=== PATIENT | male | born 1935 | race African-American/Black ===

== ENCOUNTER → 2017-06-06 | Outpatient (CLI) | payer MEDICARE ==
[2015-09-30 11:00] VITALS: BP 144/66
[~2017-06-06] MED LIST: ACET325T9 PO; AMOX1TAB61 PO; BUDE10.2 IH; DIGO125T PO; Diltiazem Hcl PO; PROAIR HFA8.5 GM IH
--- NOTE | 2017-06-06 12:45 | RAD ---
CT of the chest without contrast, 06/06/2017: History: Cough Noncontrast scans were obtained as requested. Comparison is made to a study from 03/29/2016. There are a few scattered linear parenchymal scars in the lungs. No pulmonary infiltrate or mass is identified. There is no evidence of pleural fluid. There is moderate calcific plaquing of the thoracic aorta and its branches including the coronary arteries. There is no evidence of thoracic aortic aneurysm. No mediastinal adenopathy is seen. There are mild scattered degenerative changes in the spine. There is a slight reverse spondylolisthesis at L1-2 due to facet joint arthropathy. IMPRESSION: 1. Calcific plaquing of the aorta and coronary arteries. 2. No acute chest abnormality is detected. PQRS Compliance Statement: One or more of the following individualized dose reduction techniques were utilized for this examination: 1. Automated exposure control 2. Adjustment of the mA and/or kV according to patient size 3. Use of iterative reconstruction technique
== END | disposition home or self-care (01) ==
LOC: CT 13:02
PROVIDERS: ATTEND Internal Medicine Pulmonary Disease
DX: R05 Cough (principal); I70.0 Atherosclerosis of aorta
CPT/HCPCS: 71250

== ENCOUNTER → 2017-06-13 | Outpatient (CLI) | payer MEDICARE ==
[2015-09-30 11:00] VITALS: BP 144/66
--- NOTE | 2017-06-18 17:55 | RAD ---
APPROVED REPORT Patient Location : OUT-PATIENT Deep System Deep Venous Thrombosis present : No Deep Venous Reflux present : No Findings The bilateral greater and lesser saphenous veins were imaged and do not reveal any evidence of reflux . The right GSV measures 6.4mm and the LSV measures 1mm. The left GSV measures 6.8 mm and the LSV measures 5 mm. Incidental note is made of a left popliteal fossa mass most consistent with a smith's cyst. There ar e two well circumscribed cysts measuring 1.8 cm and 0.4 cm. Differential includes ruptured cyst with thrombus or mass. Recommend clinical correlation and consider further evaluation to rule out mass wit h MRI. Critical Notification Critical Value: No <Conclusion> 1. No evidence of reflux in the bilateral lower extremities. 2. Incidental finding of a left popliteal fossa mass, suggestive of smith's cyst but recommend clinic al correlation and consideration of MRI to rule out mass.
== END | disposition home or self-care (01) ==
LOC: US 12:28
PROVIDERS: ATTEND Internal Medicine Cardiovascular Disease
DX: R60.0 Localized edema (principal)
CPT/HCPCS: 93970

== ENCOUNTER → 2017-06-16 | Outpatient (CLI) | payer MEDICARE ==
[2015-09-30 11:00] VITALS: BP 144/66
[~2017-06-16] MED LIST changes: +REGADENOSON 0.4 MG/5 ML DISP.SYRIN. IV ONE
--- NOTE | 2017-06-16 10:09 | CARD ---
APPROVED REPORT EXAM: Two-dimensional and M-mode echocardiogram with Doppler and color Doppler. Other Information Quality : Average Rhythm : NSR INDICATION Dyspnea 2D DIMENSIONS RVDd3.4 (2.9-3.5cm)Left Atrium(2D)3.3 (1.6-4.0cm) IVSd0.9 (0.7-1.1cm)Aortic Root(2D)2.7 (2.0-3.7cm) LVDd2.5 (3.9-5.9cm)LVOT Diameter2.1 (1.8-2.4cm) PWd1.0 (0.7-1.1cm)LVDs1.8 (2.5-4.0cm) FS (%) 29.8 %SV13.6 ml LVEF(%)59.1 (>50%) Aortic Valve AoV Peak Iron.173.8cm/sAoV VTI34.8cm AO Peak GR.12.1mmHgLVOT Peak Iron.85.8cm/s LVOT VTI 19.09cmAO Mean GR.7mmHg ALAINA (VTI)1.84jb5VN P 1/2 Fxoi142pk Mitral Valve MV E Ckdkiipb15.6cm/sMV DECEL [id number] MV A Emstdwwr00.4cm/sMV GMP19bv E/A Ratio0.9MV A Qdvrvuox709mz MVA (PHT)3.19cm2 TDI E/Lateral E'13.0E/Medial E'13.3 Pulmonary Valve RVOT VTI21.6cm Tricuspid Valve TR P. Ubukqmrd679em/sRAP AMNIDYEW7zfEh TR Peak Gr.72ybWhXUCU27dlUg LEFT VENTRICLE The left ventricle is normal size. There is normal left ventricular wall thickness. Left ventricle sy stolic function is normal. The Ejection Fraction is 55-60%. There is normal LV segmental wall motion. The left ventricular diastolic function and filling is normal for age. There is no ventricular septa l defect visualized. RIGHT VENTRICLE The right ventricle is normal size. The right ventricular systolic function is normal. ATRIA The left atrium size is normal. The right atrium size is normal. The interatrial septum is intact wit h no evidence for an atrial septal defect or patent foramen ovale as noted on 2-D or Doppler imaging. AORTIC VALVE The aortic valve is moderately sclerotic. Doppler and Color Flow revealed mild to moderate aortic reg urgitation. There is no significant aortic valvular stenosis. MITRAL VALVE Mitral annular calcification is mild. The mitral valve leaflets are thickened. There is no mitral magdalene ve stenosis. Doppler and Color Flow revealed no mitral valve regurgitation noted. TRICUSPID VALVE The tricuspid valve is normal in structure and function. Doppler and Color Flow revealed mild tricusp id regurgitation. The PA pressure was estimated at 38 mmHg. There is no tricuspid valve stenosis. PULMONIC VALVE The pulmonic valve is not well visualized. Doppler and Color Flow revealed no pulmonic valvular regur gitation. There is no pulmonic valvular stenosis. GREAT VESSELS The aortic root is normal in size. Pulmonary veins not well visualized. The IVC is normal in size and collapses >50% with inspiration. PERICARDIAL EFFUSION There is no evidence of significant pericardial effusion. Critical Notification Critical Value: No <Conclusion> Left ventricle systolic function is normal. The Ejection Fraction is 55-60%. There is normal LV segmental wall motion. Mild to moderate aortic regurgitation. Mild tricuspid regurgitation. The PA pressure was estimated at 38 mmHg. There is no evidence of significant pericardial effusion.
--- NOTE | 2017-06-16 14:20 | RAD ---
APPROVED REPORT Test Type: Pharmacological Stress Nurse/Tech: Samantha Spencer R.N. Test Indications: dyspnea on exertion Cardiac History: Family history, Hypertension, smoker, COPD Medications: See Electronic Medical Record Medical History: See Electronic Medical Record Resting ECG: NSR Resting Heart Rate: 59 bpm Resting Blood Pressure: 157/62mmHg Pretest Chest Pain: No chest pain Nurse/Tech Notes S1S2, lungs sound coarse maura. Unable to get a pulse ox due to pt,s cold extremities Consent: The procedure was explained to the patient in lay terms. Informed consent was witnessed. Renny eout was entered into Ning. History and Stress Test performed by Samantha Spencer R.N. Pharm. Details Pharmacologic stress testing was performed using 0.4mg per 5ml of regadenoson given intravenously ove r 7-10 seconds. Stress Symptoms No chest pain or symptoms. POST EXERCISE Reason for Termination: Infusion complete Max HR: 85 bpm Max Blood Pressure: 142/69mmHg Blood Pressure response to exercise: Normal blood pressure response during stress. Chest Pain: No. Arrhythmia: Yes. occ PVC ST Change: No. INTERPRETATION Stress EKG Conclusion: Baseline EKG showed sinus rhythm. No ischemic changes at peak stress. No arr hythmias. Imaging Protocol IMAGE PROTOCOL: Rest Tc-99m/stress Tc-99m 1 day Rest: Stress: Viability: Radiopharm.Tc99m LtgfvorqfWx32z Sestamibi Dose12.5mCi 33mCi Duration 15min. 10min. Img Date 06/16/2017 06/16/2017 Inj-Img Sxrt21rat. 60min. Rest Admin Site:IV - Right ForearmAdministrator:HANNY Wallace Stress Admin Site: IV - Right ForearmAdministrator: HANNY Wallace STRESS DATA End Diast. Vol.52.0mlAv. Heart Rate82.0bpm End Syst. Vol.2.0mlCO Index BSA0.0L/min Myocardial Mxcq717.0gEject. Jiarcbto03.0% Stress Rates Pk. Fill Rate1.65EDV/secLVtime Pk. Fill 127.59msec Pk. Empty Rate6.26ESV/secLVtime Pk. Zytqf931.61msec 1/ Pk. Fill1.34EDV/sec Stress Scores Regional WT0.00Summed WT3.00 Regional WM0.00Summed WM0.00 Study quality was good. Left Ventricular size was Normal at Rest and Stress. Lung uptake was Normal. Left Ventricular ejection fraction is >80%. The rest and stress images show normal perfusion, normal contraction and thickening. LV Perf. Quant 17 Seg. SSS1.00 17 Seg. SRS5.00 17 Seg. SDS0.00 Stress Defect Extent (% LAD)3.80Rest Defect Extent (% LAD)18.80Rev. Defect Extent (% LAD)0.00 Stress Defect Extent (% LCX) 0.00Rest Defect Extent (% LCX)0.00Rev. Defect Extent (% LCX)0.00 Stress Defect Extent (% RCA)0.00Rest Defect Extent (% RCA)0.00Rev. Defect Extent (% RCA)0.00 Stress Defect Extent (% AYDIN)1.30Rest Defect Extent (% AYDIN)8.00Rev. Defect Extent (% AYDIN)0.00 Conclusion 1. Regadenoson cardioisotope stress test did not show any evidence of ischemia or infarct. 2. Normal left ventricular systolic function with ejection fraction calculated at >80%. 3. Low risk for cardiac events.
== END | disposition home or self-care (01) ==
LOC: NM 07:29
PROVIDERS: ATTEND Internal Medicine Cardiovascular Disease
DX: I08.2 Rheumatic disorders of both aortic and tricuspid valves (principal)
CPT/HCPCS: 78452; 93017; 93306; 96374; 96375; 96376; A9500; J2785

== ENCOUNTER → 2017-06-30 | Outpatient (CLI) | payer MEDICARE ==
[2015-09-30 11:00] VITALS: BP 144/66
[~2017-06-30] MED LIST changes: -REGADENOSON 0.4 MG/5 ML DISP.SYRIN. IV ONE
--- NOTE | 2017-06-30 16:02 | RAD ---
APPROVED REPORT Patient Location: OUT-PATIENT Indications Rest Pain:Bilaterally cellutlitis lt toe VELOCITY AND DOPPLER WAVEFORM ANALYSIS RIGHT cm/secWaveformSeverity LEFT c m/secWaveformSeverity Ext Iliac Art. 95.0MonophasicExt Iliac Art. 83.0Monophasic pCFA 107.0MonophasicpCFA 77.0Monophasi c dCFA 139.0MonophasicdCFA 74.0Monophasi c Prof Fem Art. 84.0MonophasicProf Fem Art. 204.0Monophasi c Fem Art Prox. 114.0MonophasicFem Art Prox. 555.0Monophas ic Fem Art Mid. 353.0MonophasicFem Art Mid. 129.0Monophas ic Fem Art Dist. 153.0MonophasicFem Art Dist. 90.0Monophasi c Pop Art(AK) 155.0MonophasicPop Art(AK) 76.0Monophasi c Pop Art(BK) 84.0MonophasicPop Art(BK) 52.0Monophasic PATIENT ACCESS REGISTRAR Prox. 68.0MonophasicPTA Prox. 41.0Monophasic PATIENT ACCESS REGISTRAR Dist. 46.0MonophasicPTA Dist. 21.0Monophasic Per Art Mid. 58.0MonophasicPer Art Mid. 20.0Monophasic LUCIANO Prox. 60.0MonophasicATA Prox. 42.0Monophasic Findings Toussaint scale images of the bilateral lower extremity arterial vessels are notable for diffuse atheroscl erosis. On the right side there are monophasic waveforms from the common femoral artery to the dorsalis pedis likely suggestive of loss of arterial elasticity due to aging. There is elevated velocity in the rig ht mid SFA consistent with greater than 75% stenosis. Otherwise no high-grade flow-limiting stenosis is noted on the right side. On the left side there are again monophasic waveforms suggestive of loss of arterial elasticity. Ther e is elevated velocities at the ostial deep femoral artery suggesting greater than 75% stenosis. Ther e is also elevated velocities and turbulence on color Doppler at the ostial/proximal superficial femo ral artery suggestive of greater than 90% stenosis. Blunted and monophasic waveforms are noted throug hout the left lower extremity likely due to high-grade obstructive disease in the proximal segments. No flow-limiting inflow disease in the external iliac arteries is noted bilaterally. Critical Notification Critical Value: No <Conclusion> 1. High-grade bilateral superficial femoral artery disease as described above.
== END | disposition home or self-care (01) ==
LOC: US 13:55
PROVIDERS: ATTEND Internal Medicine Cardiovascular Disease
DX: M79.605 Pain in left leg (principal); M79.604 Pain in right leg; L03.032 Cellulitis of left toe; L03.031 Cellulitis of right toe
CPT/HCPCS: 93925

== ENCOUNTER 2017-07-15 06:56 | Outpatient (CLI) | payer MEDICARE ==
[~2017-07-15] VITALS: Ht 172.7 cm; Wt 53.5 kg
[2017-07-15] VITALS (8 sets, daily range): BP systolic 138–182; BP diastolic 53–79
[2017-07-15] MEDS ORDERED: DILT180C29 PO (07:18)
[2017-07-15] MEDS ORDERED: TRAM50TA PO (07:18)
[2017-07-15] MEDS ORDERED: ASPI-482 PO (07:18)
[2017-07-15] MEDS ORDERED: HYDR12.58 PO (07:18)
[2017-07-15] MEDS ORDERED: LIDOCAINE 2% 20 ML VIAL. ONE (07:27)
[2017-07-15] MEDS ORDERED: IODIXANOL 320 MG/ML 100 ML VIAL. ONE (07:28)
[2017-07-15 07:52] LABS: CALCIUM 8.9 mg/dL (8.5-10.1); CREATININE 0.8 mg/dL (0.7-1.3); GFR 112.3; POTASSIUM 4.3 mmol/L (3.5-5.1)
[2017-07-15 07:56] LABS: HEMATOCRIT 41.4 % (39.0-53.0); HEMOGLOBIN 13.9 g/dL (13.0-17.5); RED BLOOD COUNT 4.48 x10^6/uL (4.30-5.70); RED CELL DISTRIBUTION WIDTH 14.8 % (11.5-14.5); WHITE BLOOD COUNT 4.2 x10^3/uL (4.0-11.0)
[2017-07-15 08:06] LABS: INR 1.2 (0.8-1.1); PROTHROMBIN TIME PATIENT 14.6 SEC (11.7-14.0)
[2017-07-15] MEDS ORDERED: MIDAZOLAM HCL/PF 5 MG/5 ML VIAL. ONE (08:12)
[2017-07-15] MEDS ORDERED: fentaNYL PF VIAL 250 MCG/5 ML VIAL ONE (08:13)
[2017-07-15] MEDS ORDERED: MIDAZOLAM HCL/PF 5 MG/5 ML VIAL. IV ONE (09:15)
[2017-07-15] MEDS ORDERED: fentaNYL PF VIAL 250 MCG/5 ML VIAL IV ONE (09:15)
[2017-07-15] MEDS ORDERED: IODIXANOL 320 MG/ML 100 ML VIAL. IART ONE (09:15)
[2017-07-15] MEDS ORDERED: LIDOCAINE 2% 20 ML VIAL. IJ ONE (09:15)
[2017-07-15] MEDS ORDERED: IV 1/2 NORMAL SALINE 1,000 ML IV SCH (09:40)
--- NOTE | 2017-07-15 09:40 | PDOC ---
MODERATE SEDATION ASSESSMENT RISKS/ALTERNATIVES Risks/Alternatives Risks and alternatives of this type of sedation and procedure discussed with: RISK/ALTERNATIVES: Patient H & P ON CHART H & P H & P on chart and reviewed for co-morbid conditions and appropriate labs. H&P ON CHART: Yes STATUS PREG STATUS ASSESSED: N/A MEDS/ALLERGIES REVIEWED Meds/Allergies Reviewed Medications and Allergies including time and route of recently administered narcotics and sedatives. MEDS/ALLERGIES REVIEWED: Yes ASA RATING ASA RATING: II AIRWAY ASSESSMENT Airway Assessment Airway patency, oral function limitations, presence of caps, crowns, dentures, partials, and ability to extend neck assessed. AIRWAY ASSESSMENT: Yes MALLAMPATI SCORE MALLAMPATI SCORE: II PRE-SEDATION ASSESSMENT PRE-SEDATION ASSESSMENT: Yes JOSE J SARMIENTO MD Jul 15, 2017 09:40
--- NOTE | 2017-07-15 10:07 | CARD ---
APPROVED REPORT Patient StatusOUT-PATIENT Pecan Picker: Bhupinder Upton RT (R) Procedure(s) performed: Aortogram with bilateral lower extremity runoff Sedation time- 62 mins INDICATION FOR PROCEDURE The indication(s) include : Peripheral vascular disease with claudication. PROCEDURE NARRATIVE After explaining the risks, benefits and alternative options, informed consent was obtained from jocy ent. Patient was brought to the cardia Adjunct Psychology Faculty Member and his right groin was prepped and draped in the usu al fashion. 10 mL of 2% lidocaine was infiltrated into the skin and subcutaneous tissues for local an esthesia. Arterial access was obtained in the right common femoral artery and a 5 Ugandan sheath was i nserted. 5 Ugandan pigtail catheter was used to perform aortogram with bilateral lower extremity runof f. A 5 [place] crossover catheter was advanced over the aortic elaine with the help off a 0.035 inch G lidtarpipeire advantage wire and with the tip positioned in the proximal segment of the left superficial f emoral artery, selective angiography was performed. Contrast injections were performed through the sh eath in the right groin for selective right lower extremity angiography. Patient tolerated the proced ure well. Hemostasis in the right groin was achieved using Perclose suture closure device. There were no immediate complications. FINDINGS 1. No significant stenosis involving the distal descending aorta, bilateral common iliac arteries. 2. 40% stenosis involving the proximal segment of the left external iliac artery. No significant wendy nosis involving the right external iliac artery. The internal iliac arteries are completely occluded bilaterally. 3. No significant stenosis involving bilateral common femoral arteries. 4. The left superficial femoral artery showed 90-95% stenosis in the proximal segment, multiple area s of 70-80% stenosis in the midsegment and 90% stenosis in the distal segment. The right superficial femoral artery showed multiple areas of 70-80% stenoses in the mid and distal segments. 5. No significant stenosis involving the right popliteal artery. The left popliteal artery showed 10 0% chronic total occlusion with distal reconstitution from collaterals. 6. There is two-vessel runoff below the knee proximally involving the anterior tibial and peroneal a rteries. The anterior tibial artery however this completely occluded in the midsegment with distal re constitution from collaterals. The right posterior tibial artery is 100% occluded chronically. 7. There is one vessel runoff below the knee left lower extremity involving the peroneal artery. The left anterior and posterior tibial arteries showed chronic total occlusions proximally. Conclusion Severe bilateral lower extremity peripheral vascular disease as described above Recommendations Vascular surgery consultation for possible surgical revascularization. If he is deemed a poor surgical candidate, we will consider percutaneous revascularization.
== END 2017-07-15 11:40 | disposition home or self-care (01) ==
LOC: CCL 06:56
PROVIDERS: ATTEND Internal Medicine Cardiovascular Disease
DX: I70.213 Atherosclerosis of native arteries of extremities with intermittent claudication, bilateral legs (principal); J44.9 Chronic obstructive pulmonary disease, unspecified; K21.9 Gastro-esophageal reflux disease without esophagitis; M19.90 Unspecified osteoarthritis, unspecified site; F17.200 Nicotine dependence, unspecified, uncomplicated; Z90.49 Acquired absence of other specified parts of digestive tract; Z87.39 Personal history of other diseases of the musculoskeletal system and connective tissue; Z72.0 Tobacco use
CPT/HCPCS: 36415; 75630; 80048; 85027; 85610; 99152; 99153; C1769; C1771; C1892; J1644; J2250; J3010; Q9967; J2001

== ENCOUNTER → 2019-07-02 | Outpatient (CLI) | payer MEDICARE ==
[2017-07-15 11:00] VITALS: BP 167/71
[~2019-07-02] MED LIST changes: +ALBU2.5V8 IH; +ASPI-482 PO; +DILT180C29 PO; +HYDR12.58 PO; -PROAIR HFA8.5 GM IH; +TRAM50TA PO
--- NOTE | 2019-07-02 09:25 | RAD ---
Examination: CT chest without contrast HISTORY: History of pulmonary infiltrate COMPARISON: 05/29/2018 TECHNIQUE: Axial CT images of the chest were performed without contrast. Coronal and sagittal reformats are performed. Exposure: One or more of the following individualized dose reduction techniques were utilized for this examination: 1. Automated exposure control 2. Adjustment of the mA and/or kV according to patient size 3. Use of iterative reconstruction technique FINDINGS: The central airways are patent. The heart size grossly appears unremarkable. Diffuse coronary artery calcifications identified. No radiologically significant mediastinal lymphadenopathy is identified. Moderate lung emphysematous changes. No evidence of pleural effusion or pneumothorax. The previously visualized nodule measuring 7 mm identified in the right lower lobe of the lung adjacent to the bronchus is unchanged. Minimal atelectasis or infiltrate right lung base. The noncontrasted liver, spleen, adrenals grossly appears unremarkable. Moderate aortic atherosclerosis. Mild degenerative changes thoracic spine. IMPRESSION: 1. Minimal right lung base atelectasis or infiltrate. 2. 7 mm nodule identified in the right lower lobe of the lung similar to prior exam. Electronically signed by: Mike Rodriguez MD (07/02/2019 9:23 AM) [id number]
== END | disposition home or self-care (01) ==
LOC: CT 11:11
PROVIDERS: ATTEND Internal Medicine Pulmonary Disease
DX: J43.9 Emphysema, unspecified (principal); R91.1 Solitary pulmonary nodule; I25.10 Atherosclerotic heart disease of native coronary artery without angina pectoris; I70.0 Atherosclerosis of aorta; M47.814 Spondylosis without myelopathy or radiculopathy, thoracic region; R63.4 Abnormal weight loss; R91.8 Other nonspecific abnormal finding of lung field
CPT/HCPCS: 71250

== ENCOUNTER → 2020-08-04 | Outpatient (CLI) | payer MEDICARE ==
[2017-07-15 11:00] VITALS: BP 167/71
[~2020-08-04] MED LIST changes: -DIGO125T PO; +DIGO125T3 PO
--- NOTE | 2020-08-04 11:05 | RAD ---
EXAM: CT Chest without IV contrast INDICATION: Reason: LUNG NODULE / Spl. Instructions: / History: TECHNIQUE: Multi-detector row CT images were acquired from the thoracic inlet through the upper abdomen without the use of IV contrast. Sagittal and coronal images were acquired from the transaxial data. All CT scans performed at this facility utilize dose optimization techniques as appropriate to the exam, including the following: Automated exposure control and adjustment of the mA and/or KV according to patient size (this includes techniques or standardized protocols for targeted exams where dose is indication/reason for exam). COMPARISON: Noncontrast chest CT 07/02/2019 FINDINGS: The absence of IV contrast limits evaluation of soft tissue pathology. CARDIOVASCULAR: Normal heart size. Upper normal caliber thoracic aorta at 3.8 cm. No intramural hematoma. Dense multivessel coronary calcifications and calcifications of the aortic valve are redemonstrated. MEDIASTINUM & ANALILIA: No adenopathy or masses. There remains some frothy fluid layering dependently in the distal trachea and bilateral mainstem bronchi.. LUNGS: Moderate centrilobular emphysema. Stable 8 mm oval nodule in the superior right lower lobe abutting the dorsal aspect of the distal right mainstem bronchus (image 27 series 2). There is a 7 mm nodule in the right lower lobe (image 38 of series 2, sagittal image 88 of series 6) that is new. Mild pleural parenchymal scarring along the anterior margin of the right middle lobe is present. PLEURAL SPACE: No pleural effusions or pneumothorax. OSSEOUS & SOFT TISSUE: Bones are demineralized and show degenerative changes in the visualized upper lumbar spine ABDOMEN: Included upper abdomen shows post cholecystectomy changes and partially imaged ectasia of the densely calcified abdominal aorta measuring 2.8 cm on image 71 of series 2. IMPRESSION: Emphysema with stable apical segment right lower lobe pulmonary nodule, and new 7 mm right lower lobe pulmonary nodule between the apical and posterior basal segments. Recommend follow-up CT in 6 months. Electronically signed by: Turner Wise MD (08/04/2020 11:02 AM) [id number]
== END | disposition home or self-care (01) ==
LOC: CT 08:09
PROVIDERS: ATTEND Internal Medicine Pulmonary Disease
DX: J43.2 Centrilobular emphysema (principal); R91.1 Solitary pulmonary nodule; J98.4 Other disorders of lung; M47.816 Spondylosis without myelopathy or radiculopathy, lumbar region; M81.8 Other osteoporosis without current pathological fracture; I77.811 Abdominal aortic ectasia; Z90.49 Acquired absence of other specified parts of digestive tract
CPT/HCPCS: 71250

== ENCOUNTER → 2020-09-19 | Outpatient (CLI) | payer MEDICARE ==
[2017-07-15 11:00] VITALS: BP 167/71
--- NOTE | 2020-09-19 17:58 | RAD ---
Exam: DUPLEX LOWER EXTREMITY BILAT History: Reason: Nonpalpable pulses Comparison: None. Technique: Grayscale, color, and spectral Doppler ultrasound images of the lower extremity arteries. Findings: Peak systolic velocities (cm/s) and waveforms in the lower extremities: Right: Common femoral artery: 98, triphasic Profunda femoris artery: 35, biphasic Proximal superficial femoral artery: 76, biphasic Mid superficial femoral artery: 185, biphasic Distal superficial femoral artery: 77, biphasic Popliteal artery: 76, biphasic Posterior tibial artery proximally: 55 and monophasic Posterior tibial artery distally: Occluded, Peroneal artery: 38 monophasic Anterior tibial artery: 93 monophasic Dorsalis pedis artery: 26, monophasic Left: Common femoral artery: 34, biphasic Profunda femoris artery: 109, biphasic Proximal superficial femoral artery: 74, biphasic Mid superficial femoral artery: 112, monophasic Distal superficial femoral artery: 30, monophasic Popliteal artery: 273, monophasic Posterior tibial artery proximally: 35, monophasic Posterior tibial artery distally: Occluded Peroneal artery: 15 monophasic Anterior tibial artery: 26 monophasic with slow upstroke Dorsalis pedis artery: Occluded Impression: 1. Bilateral peripheral vascular disease with occlusion of the bilateral posterior tibial arteries distally and of the left dorsalis pedis artery. Abnormal monophasic waveforms below the knees and in the mid and distal left superficial femoral artery. 2. Elevated velocities in the left popliteal artery and to a lesser extent the mid right superficial femoral artery suggesting focal stenosis. Electronically signed by: Melanie Aquino MD (09/19/2020 5:54 PM) [id number]
== END ==
LOC: US 14:45
PROVIDERS: ATTEND Podiatrist
DX: I77.89 Other specified disorders of arteries and arterioles (principal)
CPT/HCPCS: 93925

== ENCOUNTER → 2021-01-26 | Outpatient (CLI) | payer MEDICARE ==
[2017-07-15 11:00] VITALS: BP 167/71
--- NOTE | 2021-01-26 16:13 | RAD ---
CT THORAX WO History: Follow-up lung nodule. Comparison: CT chest 08/04/2020, 07/02/2019, 05/29/2018. Technique: Noncontrast CT of the chest. Findings: Assessment is limited by lack of IV contrast. Aorta and Great Vessels: Moderate aortic calcifications. Mild ectasia of the ascending aorta measurin g up to 3.9 cm diameter. Thyroid: No significant abnormalities. Mediastinum and damion: No mediastinal masses or adenopathy is seen. Esophagus: The visualized esophagus is normal. Heart: The heart is normal in size. There is no pericardial effusion. Heavy coronary artery calcifica tion. Trachea: Diffuse bronchial wall thickening. Minimal debris within the bilateral mainstem bronchi and posterior lower lobe bronchi. Mild bilateral lower lobe bronchiectasis. Lungs: Moderate emphysematous change. Unchanged 7 mm nodule abutting right mainstem bronchus in the a pical segment right lower lobe (axial series 11 image 44). The most recently described nodule in the right lower lobe between the apical and posterior basal segments has resolved. Pleural Space: There is no pneumothorax or pleural effusion. Upper Abdomen: Abdominal aorta ectasia measuring 2.4 cm at the inferior imaged. Cholecystectomy clips . Osseous Structures and Soft Tissues: Mild retrolisthesis of L1 on L2, unchanged. Impression: 1. Interval resolution of previously described new right lower lobe pulmonary nodule between apical and posterior basal segments. 2. Stable 7 mm right lower lobe apical segment nodule since at least 2018 consistent with a benign p rocess. 3. Debris within the bilateral mainstem and lower lobe bronchi associated with bronchiectasis sugges ts possible aspiration. 4. Ectasia of the abdominal aorta to 2.4 cm at the inferior most axial image. Recommend screening fo r abdominal aortic aneurysm. ------ Exposure: One or more of the following individualized dose reduction techniques were utilized for thi s examination: 1. Automated exposure control 2. Adjustment of the mA and/or kV according to patient size 3. Use of iterative reconstruction technique. Electronically signed by: Kevin Sheehan MD (01/26/2021 4:10 PM) [facility]
== END ==
LOC: CT 09:33
PROVIDERS: ATTEND Internal Medicine Pulmonary Disease
DX: J43.9 Emphysema, unspecified (principal); R91.1 Solitary pulmonary nodule; I77.819 Aortic ectasia, unspecified site; Z90.49 Acquired absence of other specified parts of digestive tract
CPT/HCPCS: 71250

== ENCOUNTER → 2021-11-20 | Outpatient (CLI) | payer MEDICARE ==
[2021-06-07 11:00] VITALS: BP 127/58
[~2021-11-20] MED LIST changes: +CEFD300C PO; +MIRT15TA2 PO; +PRED20TA PO
--- NOTE | 2021-11-20 15:25 | RAD ---
MR#: [id number] Date of Study: 11/20/2021 Ordering Physician: BOYD SANTAMARIA, Referring Physician: BOYD SANTAMARIA, Tech: Zacarias Ashford MBA, RDMS, RVT, RDCS, RTR APPROVED REPORT Patient Location: OUT-PATIENT Indications PAD Findings Right arm blood pressure of 141 Left arm blood pressure of 153 Bilateral ankle blood pressures could not be obtained due to lack of compressibility. Nondiagnostic FER Critical Notification Critical Value: No <Conclusion> 1. Nondiagnostic FER Signed by : Boyd Santamaria, Electronically Approved : 11/20/2021 15:25:19
--- NOTE | 2021-11-21 19:07 | CARD ---
MR#: [id number] Date of Study: 11/20/2021 Ordering Physician: BOYD SANTAMARIA, Referring Physician: BOYD SANTAMARIA, Tech: Sarahi Wallace [facility] [[email or web address]] APPROVED REPORT EXAM: Two-dimensional and M-mode echocardiogram with Doppler and color Doppler. Other Information Quality : Technically LimitedHR: 77bpm Rhythm : NSR INDICATION COPD 2D DIMENSIONS Left Atrium(2D)4.0 (1.6-4.0cm)IVSd1.9 (0.7-1.1cm) Aortic Root(2D)3.8 (2.0-3.7cm)LVDd3.1 (3.9-5.9cm) LVOT Diameter2.0 (1.8-2.4cm)PWd1.4 (0.7-1.1cm) LVDs0.9 (2.5-4.0cm)FS (%) 71.3 % SV37.1 ml Aortic Valve AoV Peak Iron.352.8cm/sAoV VTI67.7cm AO Peak GR.49.8mmHgLVOT Peak Iron.93.7cm/s AO Mean GR.21mmHgAVA (VMAX)0.85cm2 Tricuspid Valve TR P. [id number]/sTR Peak Gr.58mmHg LEFT VENTRICLE The left ventricle is normal size. There is moderate to moderately severe left ventricular hypertroph y. The left ventricular systolic function is normal and the ejection fraction is within normal range. LV ejection fraction of 60 to 65%. There is normal LV segmental wall motion. RIGHT VENTRICLE The right ventricle is normal size. There is normal right ventricular wall thickness. The right ventr icular systolic function is normal. ATRIA The left atrium size is normal. The right atrium size is normal. AORTIC VALVE The aortic valve is moderately thickened and calcified. Doppler and Color Flow revealed mild aortic r egurgitation. There is moderately severe valvular aortic stenosis. MITRAL VALVE The mitral valve is normal in structure and function. There is no evidence of mitral valve prolapse. There is no mitral valve stenosis. Doppler and Color-flow revealed mild mitral regurgitation. TRICUSPID VALVE The tricuspid valve is normal in structure and function. Doppler and Color Flow revealed trace to mil d tricuspid regurgitation. GREAT VESSELS The aortic root is mildly enlarged. The IVC is normal in size and collapses >50% with inspiration. PERICARDIAL EFFUSION There is no evidence of significant pericardial effusion. Critical Notification Critical Value: No <Conclusion> The left ventricle is normal size. The left ventricular systolic function is normal and the ejection fraction is within normal range. LV ejection fraction of 60 to 65%. There is moderate to moderately severe left ventricular hypertrophy. The aortic valve is moderately thickened and calcified. Doppler and Color Flow revealed mild aortic regurgitation. There is moderately severe valvular aortic stenosis. Doppler and Color-flow revealed mild mitral regurgitation. Doppler and Color Flow revealed trace to mild tricuspid regurgitation. Signed by : Shine Ramsey MD Electronically Approved : 11/21/2021 19:06:39
--- NOTE | 2021-11-21 19:50 | RAD ---
MR#: [id number] Date of Study: 11/20/2021 Ordering Physician: BOYD SANTAMARIA, Referring Physician: BOYD SANTAMARIA, Tech: Zacarias Ashford, SILVANO, RDMS, RVT, RDCS, RTR APPROVED REPORT Patient Location: OUT-PATIENT Indications PAD VELOCITY AND DOPPLER WAVEFORM ANALYSIS RIGHT cm/secWaveformSeverity LEFT cm/secWaveform Severity dCFA 112.0BiphasicdCFA 37.0Monophasic Prof Fem Art. 124.0BiphasicProf Fem Art. 63.0Biphasic Fem Art Prox. 244.0MonophasicFem Art Prox. 516.0Monophasic Fem Art Mid. 694.0MonophasicFem Art Mid. 77.0Monophasic Fem Art Dist. 61.0MonophasicFem Art Dist. 16.0Monophasic Pop Art(Fossa) 25.0MonophasicPop Art(AK) 105.0Monophasic FORCE [employer] EQUIPMENT TENDER Prox. 39.0MonophasicPTA Prox. 32.0Monophasic FORCE [employer] EQUIPMENT TENDER Dist. 42.0MonophasicPTA Dist. 38.0Monophasic Per Art Mid. 46.0MonophasicPer Art Mid. 30.0Monophasic LUCIANO Prox. 54.0MonophasicATA Prox. 63.0Monophasic DPA 50MonophasicDPA 21Monophasic Findings Grayscale images demonstrate moderate diffuse atherosclerosis with more severe atherosclerosis locali zed to the superficial femoral arteries. Based on velocity criteria there is likely greater than 75% stenosis involving the bilateral SFA vessels. This is a known finding from previous. There are mon ophasic waveforms throughout the bilateral lower extremities after the common femoral artery. Critical Notification Critical Value: No <Conclusion> 1. 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 Signed by : Boyd Santamaria, Electronically Approved : 11/21/2021 19:50:14
== END ==
LOC: US 13:27
PROVIDERS: ATTEND Internal Medicine Cardiovascular Disease
DX: I08.3 Combined rheumatic disorders of mitral, aortic and tricuspid valves (principal); I70.203 Unspecified atherosclerosis of native arteries of extremities, bilateral legs; I48.91 Unspecified atrial fibrillation
CPT/HCPCS: 93306; 93922; 93925

== ENCOUNTER 2021-11-30 14:48 | Emergency (ER) | payer MEDICARE ==
[~2021-11-30] VITALS: Ht 172.7 cm; Wt 45.5 kg
[2021-11-30 15:23] VITALS: BP 158/58
--- NOTE | 2021-11-30 16:31 | PHYS DOC ---
Past Medical History Past Medical History: COPD Past Surgical History: Other Additional Past Surgical Histo: Hernia repair, Prostate removed Smoking Status: Former Smoker Alcohol Use: None Drug Use: None General Adult EDM: Chief Complaint: NOSEBLEED HPI: HPI: Patient is a 86 year old male who presents with earlier today he had a nosebleed for about an hour today. He states he blew his nose and clot came out and then he started having some bleeding. He states he did not hold pressure. He no longer has any bleeding. Patient does wear oxygen continuously. Patient denies dizziness, nausea, vomiting, diarrhea, chest pain, headache, fever, shortness of air. Review of Systems: Review of Systems: Constitutional: Denies fever or chills. [] Eyes: Denies change in visual acuity. [] HENT: Denies nasal congestion or sore throat. + Nosebleed [] Respiratory: Denies cough or shortness of breath. [] Cardiovascular: Denies chest pain or edema. [] GI: Denies abdominal pain, nausea, vomiting, bloody stools or diarrhea. [] : Denies dysuria. [] Musculoskeletal: Denies back pain or joint pain. [] Integument: Denies rash. [] Neurologic: Denies headache, focal weakness or sensory changes. [] Endocrine: Denies polyuria or polydipsia. [] Lymphatic: Denies swollen glands. [] Psychiatric: Denies depression or anxiety. [] Heart Score: C/O Chest Pain: No Allergies: Allergies: Allergies Coded Allergies Type Severity Reaction Last Updated Verified fluoxetine Allergy Intermediate 07/15/17 Yes Physical Exam: PE: Constitutional: Well developed, well nourished, no acute distress, non-toxic appearance. [] HENT: Normocephalic, atraumatic, bilateral external ears normal, oropharynx moist, no oral exudates, nose normal. Dried blood in bilateral nares. [] Eyes: PERRLA, EOMI, conjunctiva normal, no discharge. [] Neck: Normal range of motion, no tenderness, supple, no stridor. [] Cardiovascular:Heart rate regular rhythm, no murmur [] Lungs & Thorax: Bilateral breath sounds clear to auscultation [] Abdomen: Bowel sounds normal, soft, no tenderness, no masses, no pulsatile masses. [] Skin: Warm, dry, no erythema, no rash. [] Back: No tenderness, no CVA tenderness. [] Extremities: No tenderness, no cyanosis, no clubbing, ROM intact, no edema. [] Neurologic: Alert and oriented X 3, normal motor function, normal sensory function, no focal deficits noted. [] Psychologic: Affect normal, judgement normal, mood normal. [] Current Patient Data: Vital Signs: Vital Signs Date Time Temp Pulse Resp B/P (MAP) Pulse Ox O2 Delivery O2 Flow Rate FiO2 11/30/21 15:23 97.0 75 24 158/58 (91) 93 Nasal Cannula 2.0 97.0 EKG: EKG: [] Radiology/Procedures: Radiology/Procedures: [] Course & Med Decision Making: Course & Med Decision Making Pertinent Labs and Imaging studies reviewed. (See chart for details) See HPI. Alert and oriented x4. He is a full clear sentences. Patient educated that he needs to call his oxygen company and get a humidifier put on his oxygen tank. We also talked about saline nasal spray. Speaks in full clear sentences. No postnasal blood. Dried blood in bilateral nares. No bleeding. Denies any kind of trauma. [] Dragon Disclaimer: Dragon Disclaimer: This electronic medical record was generated, in whole or in part, using a voice recognition dictation system. Departure Departure Impression: Primary Impression: Nasal bleeding Disposition: 01 HOME / SELF CARE / HOMELESS Condition: STABLE Referrals: DANNIELLE STEELE MD (PCP) Patient Instructions: Nose Drops, Saline, [id number], Nosebleed Additional Instructions: Follow-up your primary care. Call the company that provides your oxygen for humidifier. If your nose begins to bleed again you cannot stop it return to the emergency room. Try using nasal saline spray. CHAITANYA BURDICK APRN Nov 30, 2021 16:31
== END 2021-11-30 17:09 | disposition home or self-care (01) ==
LOC: ER 14:48
DX: R04.0 Epistaxis (principal); J44.9 Chronic obstructive pulmonary disease, unspecified; Z87.891 Personal history of nicotine dependence; Z88.8 Allergy status to other drugs, medicaments and biological substances
CPT/HCPCS: 99284